=== PATIENT | female | born 1960 | race Caucasian/White ===

== ENCOUNTER 2019-09-06 14:20 | Emergency (ER) | payer BC, SELFPAY ==
--- NOTE | ~2019-09-06 | XR_ITS ---
EXAMINATION: XR cervical spine 4-5V DATE: 09/06/2019 15:27 INDICATION: Neck and right shoulder pain. TECHNIQUE: 5 views of cervical spine were obtained. COMPARISON: None. FINDINGS: There is 3 mm anterolisthesis of C4 on C5 with focal kyphosis. There is 7 degrees dextrocur vature of cervicothoracic spine. Vertebral body heights are normal. There is severely decreased disc height at C5-C6 and moderately decreased disc height at C6-C7. There is multilevel uncovertebral join t osteoarthritis, severe on the right at C5-C6 and severe on the left at C6-C7. There is multilevel m ild facet joint osteoarthritis. There is mild central canal stenosis at C4-C5, C5-C6, and C6-C7. No p revertebral soft tissue swelling. IMPRESSION: 1. Severe cervical spondylosis. Reviewed, dictated and finalized at location A. [facility]P
--- NOTE | ~2019-09-06 | XR_ITS ---
EXAMINATION: XR shoulder RT min 2V DATE: 09/06/2019 15:28 INDICATION: Right shoulder pain and limited range of motion TECHNIQUE: AP internally and externally rotated, AP oblique externally rotated and transscapular Y vi ews of the right shoulder were obtained. COMPARISON: None FINDINGS: Osteopenia. Normal alignment at the right shoulder. No fracture. Glenohumeral joint is normal. Minima l acromioclavicular joint osteoarthritis. Minimal mid thoracic dextrocurvature with mild spondylosis. Soft tissues are unremarkable. Visualized portions of the lungs are clear. IMPRESSION: Osteopenia and minimal acromioclavicular osteoarthritis. No acute osseous abnormality. Reviewed, dictated and finalized at location A. [employer] IMPRESSION: Osteopenia and minimal acromioclavicular osteoarthritis. No acute osseous abnor mality.
[2019-09-06 14:33] VITALS: BP 144/69; PULSE 84; RESP 20; TEMP 37.2; O2SAT 98
--- NOTE | 2019-09-06 15:13 | ED.UPPEXIN ---
HPI - Extremity Injury (Upper) General Chief Complaint: Extremity Injury, Upper Stated Complaint: R SHOULDER PAIN Time Seen by Provider: 09/06/19 15:04 Source: patient and family Mode of arrival: ambulatory Limitations: no limitations History of Present Illness HPI narrative: 59-year-old female presents for evaluation of pain. She reports on Wednesday, 3 days ago she was shopping and noticed mid posterior cervical neck pain. She states she lifted some paint cans and later on she noticed pain was slowly going down her shoulder. That night, entire right upper extremity pain occurred. She reports pain has been constant and has been worse with movement and range of motion. Pain is present, sore and is located near shoulder, axilla, humerus region. She denies any numbness, tingling, swelling, bruising, chest pain, shortness of breath, radiating pain, diaphoresis, palpitations, confusion, lightheadedness, weakness. She is used ibuprofen for her symptoms and is placing her arm in position of comfort. She reports a position of comfort, her pain is a 4, with movement it is a 9. She denies any prior neck or arm injuries, surgeries, pain. Related Data Home Medications Medication Instructions Recorded Confirmed fluoxetine mg 09/06/19 rosuvastatin mg 09/06/19 Allergies Allergy/AdvReac Type Severity Reaction Status Date / Time No Known Allergies Allergy Verified 09/06/19 14:32 Review of Systems Review of Systems: Narrative: CONSTITUTIONAL: Denies fever, chills, weight loss, or sweats. EYES: Denies visual changes, redness, or discharge. ENT: Denies rhinorrhea, congestion, sore throat, or otalgia. CARDIOVASCULAR: Denies chest pain, palpitations, or edema. RESPIRATORY: Denies cough or dyspnea. GASTROINTESTINAL: Denies abdominal pain, nausea, vomiting, or diarrhea. GENITOURINARY: Denies dysuria, hematuria, urinary frequency, malordous urine SKIN: Denies rash or itching. MUSCULOSKELETAL: Reports posterior neck pain, right upper extremity pain. Denies any swelling, bruising NEUROLOGIC: Denies headache, numbness, tingling, or weakness. PSYCHIATRIC: Denies anxiety or depression. All systems reviewed & are unremarkable except as noted in HPI and below PMFSH Comments At the time of my signature, I agree with nursing past medical, surgical, social and family history. There is no relevant family history pertinent to the presenting complaint. Exam Narrative: Exam Narrative: GENERAL: No distress, well appearing, well nourished, alert and calm HEAD: Normocephalic, atraumatic. EYES: Pupils equal, round. Extraocular movements intact. Conjunctivae without redness or drainage. EARS: Tympanic membranes without erythema. TM landmarks intact with good light reflex. Ear canals without discharge. NOSE: Nares patent. Nasal turbinates noninflamed. No nasal discharge MOUTH: Mucous membranes moist. No lesions. No cyanosis. Dentition grossly normal. THROAT: Oropharynx without signs erythema, exudates or lesions. Tonsils not enlarged. NECK: Supple. No lymphadenopathy. RESPIRATORY: Airway patent. Chest clear to auscultation bilaterally. Breath sounds equal bilaterally. No retractions. CARDIOVASCULAR: Regular rate and rhythm. No murmurs, rubs, gallops, or clicks. Capillary refill <2 seconds. GASTROINTESTINAL: Soft, nontender, non-distended. Bowel sounds normoactive. No masses. No organomegaly. No CVA tenderness MUSCULOSKELETAL: Full range of motion of cervical spine with no pain. No tenderness to the cervical spine on palpation. Limited range of motion of right upper extremity due pain located to right axilla and humeral region..Strength grossly normal in all four extremities. No edema. No swelling. No break in skin integrity or skin changes noted SKIN: Color normal. Warm and dry. No rashes. NEURO: Alert. Motor intact in all extremities. Muscle tone normal. Course Vital Signs Vital signs: Vital Signs Temperature 98.9 F 09/06/19 14:33 Pulse Rate 84
== END 2019-09-06 16:20 | disposition home or self-care (01) ==
PROVIDERS: Emergency Provider Nurse Practitioner; PCP Family Medicine
DX: M47.812 Spondylosis without myelopathy or radiculopathy, cervical region (principal); E78.00 Pure hypercholesterolemia, unspecified
CPT/HCPCS: 72050; 73030; 99204; G0463

== ENCOUNTER 2020-05-24 09:29 | Emergency (ER) | payer BC, SELFPAY ==
--- NOTE | 2020-05-24 09:39 | ED.GENADULT ---
HPI - General Adult General Chief complaint: Abdominal Pain Stated complaint: LOWER ABD PAIN Time Seen by Provider: 05/24/20 09:35 History of Present Illness HPI narrative: Patient is requesting to rule out for appendicitis while at the registration desk. Patient was informed that our facility does not rule out appendicitis but was more than happy to see the patient for her current complaint of abdominal pain. Patient states that she will proceed to the emergency room for further evaluation and treatment. Patient did not make it past registration and was not seen in triage or evaluated by the provider. Patient was in no acute distress and left via private car. Related Data Home Medications Medication Instructions Recorded Confirmed fluoxetine mg 09/06/19 rosuvastatin mg 09/06/19 Allergies Allergy/AdvReac Type Severity Reaction Status Date / Time No Known Allergies Allergy Verified 09/08/19 10:36 Discharge Plan Discharge Patient Disposition: Left Without Being Seen Prescriptions: No Action fluoxetine 10 mg capsule RF: 0 rosuvastatin 10 mg tablet RF: 0 diclofenac potassium 50 mg tablet 50 mg PO BID Qty: 30 RF: 0 prednisone 20 mg tablet 30 mg PO BID 5 Days Qty: 15 RF: 0 Follow-up/Referrals: UNKNOWN,DOCTOR [Primary Care Provider] - Time of Disposition: 09:37
== END 2020-05-24 09:41 | disposition left against medical advice (07) ==
PROVIDERS: Emergency Provider Nurse Practitioner Family
DX: Z53.21 Procedure and treatment not carried out due to patient leaving prior to being seen by health care provider (principal)
CPT/HCPCS: 99199

== ENCOUNTER 2020-05-24 09:47 | Emergency (ER) | payer BC, SELFPAY ==
--- NOTE | ~2020-05-24 | CT_ITS ---
EXAMINATION: CT abdomen pelvis w con DATE: 05/24/2020 11:32 INDICATION: Abdominal pain TECHNIQUE: Computed tomography (CT) of the abdomen and pelvis was performed with 100 mL Omnipaque-350 intravenous contrast. Automated exposure control and iterative reconstruction technique were employe d. The dose-length product was 365.78 mGy-cm. COMPARISON: None FINDINGS: Mild discoid atelectasis in the lingula and right middle lobe and dependent passive atelectasis in th e lateral lower lobes. Heart size is normal. Atherosclerotic coronary artery calcific calcification. No pericardial or pleural effusion. Liver, gallbladder, spleen, pancreas, bilateral adrenal glands an d kidneys are normal. Normal appendix. No bowel obstruction. There is diffuse fatty infiltration of t he colonic wall likely related to patient body habitus. More edematous wall thickening and surroundin g inflammatory stranding seen along the distal sigmoid colon. This appears to surround an epiploic ap pendage which demonstrated some haziness in the epiploic fat consistent with epiploic appendage arter ies. Bladder, uterus and bilateral adnexa are unremarkable. Trace amount of free fluid in the pelvis. No abscess or free intraperitoneal gas. No pathologically enlarged abdominal or pelvic lymphadenopat hy. There is calcified atherosclerosis of the aorta and many of the other arteries. Mild scattered d egenerative skeletal changes in the spine and pelvis. IMPRESSION: 1. Mild wall thickening and inflammatory stranding at the sigmoid colon in the region of what appears be an inflamed epiploic appendage consistent with epiploic appendagitis. Differential would include less likely focal colitis which could be infectious, inflammatory or ischemic in etiology. Reviewed, dictated and finalized at location B. IMPRESSION: 1. Mild wall thickening and inflammatory stranding at the sigmoid colon in the region of what appears be an inflamed epiploic appendage consistent with epiplo ic appendagitis. Differential would include less likely focal colitis which cou ld be infectious, inflammatory or ischemic in etiology.
--- NOTE | 2020-05-24 10:09 | ED.ABDPAIN ---
HPI - Abdominal Pain General Chief Complaint: Abdominal Pain Stated Complaint: Right Side ABD Pain Time Seen by Provider: 05/24/20 09:59 Source: patient and family Mode of arrival: ambulatory Limitations: no limitations History of Present Illness HPI narrative: 59 years old white female presents with right lower quadrant pain started 4 days ago, intermittent, dull aching, denies any aggravating factors. Feels better with heating pad. Patient denies any fever, chills, nausea, vomiting, history of abdominal surgery. History of hyperlipidemia. Patient smokes and drinks denies drug use. Related Data Home Medications Medication Instructions Recorded Confirmed fluoxetine mg 05/24/20 rosuvastatin mg 05/24/20 Allergies Allergy/AdvReac Type Severity Reaction Status Date / Time No Known Allergies Allergy Verified 05/24/20 10:53 Review of Systems Review of Systems: Narrative: CONSTITUTIONAL: Denies fever, chills, or sweats. EYES: Denies visual changes, redness, or discharge. ENT: Denies rhinorrhea, congestion, sore throat, or otalgia. CARDIOVASCULAR: Denies chest pain, palpitations, or edema. RESPIRATORY: Denies cough or dyspnea. GASTROINTESTINAL: Denies abdominal pain, nausea, vomiting, or diarrhea. GENITOURINARY: Denies dysuria or hematuria. SKIN: Denies rash or itching. MUSCULOSKELETAL: Denies back pain, joint pain, or myalgia. NEUROLOGIC: Denies headache, numbness, or weakness. PSYCHIATRIC: Denies anxiety or depression. PMFSH Social History Social History (Updated 05/24/20 @ 10:11 by Leigh Ann Del Real MD) Social History: Patient smokes, drinks, denies drug use Second hand tobacco smoke exposure: Yes Gender identity (if verbalized by the patient): Female Exam Narrative: Exam Narrative: General appearance: Well-developed, well-nourished Skin: Normal color Head: Normocephalic, nontraumatic Eyes: Clear conjunctiva ENT: Oropharynx normal, ears normal, nose normal Neck: Supple, nontender Chest and respiratory: Airway patent, no respiratory distress, no accessory muscle use Heart: Regular rate/rhythm Abdomen: Soft, mild tenderness right lower quadrant, no guarding or rebound, distended abdomen, no organomegaly, quiet bowel sounds Vascular: Normal peripheral pulses, normal capillary refill. Musculoskeletal: Normal range of motion, nontender back Neurologic: Alert and oriented ?3, [employer] is normal as tested, no gross motor deficit Course Course Emergency Course: Stable Vital Signs Vital signs: Vital Signs Blood Pressure 161/86 H 05/24/20 10:16 Pulse Oximetry 99 05/24/20 10:16 Temperature 36.2 C L 05/24/20 10:20 Pulse Rate 90 05/24/20 10:20 Respiratory Rate 18 05/24/20 10:20 Blood Pressure 145/65 H 05/24/20 10:46 Pulse Oximetry 98 05/24/20 10:46 MDM - Abdominal Pain MDM Narrative Medical decision making narrative: Patient presents with abdominal pain, physical exam showed a mild tenderness right lower quadrant. Blood work-up showed slight leukocytosis, CT scan of the abdomen and pelvis showed epiploic appendagitis versus colitis Patient will be discharged on Levaquin and Flagyl Differential Diagnosis Differential diagnosis: Likely acute appendicitis, constipation and diverticulitis Lab Data Result diagrams: 05/24/20 10:17 05/24/20 10:43 Labs: Lab Results 05/24/20 05/24/20 05/24/20 Range/Units 10:17 10:17 10:43 WBC 12.3 H (4.5-10.0) K/mm3 RBC 4.29 (4.2-5.4) M/mm3 Hgb 14.0 (12.0-15.0) g/dL Hct 40.9 (37.0-47.0) % MCV 95.3 (80-100) fl MCH 32.6 (26-34) pg MCHC 34.2 (32-36) g/dl RDW 14.6 H (11.5-14.5) % Plt Count 305 (150-375)
[2020-05-24 10:16] VITALS: BP 161/86; O2SAT 99
[2020-05-24 10:20] VITALS: BP 145/80; PULSE 90; RESP 18; TEMP 36.2; O2SAT 100
[2020-05-24 10:32] LABS: Basophils Percent Auto 0.2 % (0.2-1.2); Eosinophils Absolute Auto 0.2 K/mm3 (0-0.3); Eosinophils Percent Auto 1.3 % (0-4.4); Hematocrit 40.9 % (37.0-47.0); Immature Granulocyte Absolute 0.05 K/mm3 (0.00-0.031); Immature Granulocyte Percent A 0.4 % (0-0.5); Lymphocytes Absolute Auto 1.91 K/mm3 (0.9-3.2); Lymphocytes Percent Auto 15.6 % (18.3-44.2); Mean Corpuscular HGB Conc 34.2 g/dl (32-36); Mean Corpuscular Hemoglobin 32.6 pg (26-34); Mean Corpuscular Volume 95.3 fl (80-100); Mean Platelet Volume 10.3 fl (7.4-10.4); Monocytes Absolute Auto 0.8 K/mm3 (0.1-0.6); Monocytes Percent Auto 6.4 % (2.6-8.5); Neutrophils Absolute Auto 9.3 K/mm3 (1.3-6.7); Neutrophils Percent Auto 76.1 % (45.5-73.1); Platelet Count Result 305 k/mm3 (150-375); Red Blood Count 4.29 M/mm3 (4.2-5.4); Red Cell Distribution Width 14.6 % (11.5-14.5); White Blood Count 12.3 K/mm3 (4.5-10.0)
[2020-05-24 10:36] LABS: Add Urine Microscopic? YES; Appearance Urine Clear (Clear); Bacteria Urine Trace /hpf; Bilirubin Urine Negative (Negative); Blood Urine 1+ (Negative); Color Urine Yellow (Yellow); Glucose Urine UA Negative (Negative); Ketones Urine Negative (Negative); Leukocyte Esterase Ur Negative LEU/UL (Negative); Nitrate Urine Negative (Negative); Protein Urine Negative (Negative); RBC Urine 0-2 /hpf (0-2); Specific Grav Ur 1.008 (1.001-1.035); Squamous Epithelial Cell Urine Few /hpf (Few); Urobilinogen Urine Negative mg/dL (<2.0); WBC Urine 0-3 /hpf
[2020-05-24 10:46] VITALS: BP 145/65; O2SAT 98
--- NOTE | 2020-05-24 10:51 | PC.NURSE ---
Report to KYLEE Cornelius, to continue care.
[2020-05-24] MEDS: ONDANSETRON INJ 4 MG/2 ML VIAL IV PUSH (10:57)
[2020-05-24] MEDS: SODIUM CHLORIDE 0.9% IV 1,000 ML 999 ML IV CONT (10:58)
[2020-05-24] MEDS: HYDROmorphone HCL INJ (*CRX) 1 MG/ML SYR 0.5 MG IV PUSH (10:58)
[2020-05-24 11:02] LABS: Alanine Aminotransferase 21 U/L (4-35); Albumin Level 4.4 g/dL (3.5-5.1); Alkaline Phosphatase 78 U/L (38-126); Anion Gap 4 mmol/L (8-16); Aspartate Amino Transferase 26 U/L (14-36); Bilirubin,Total 0.6 mg/dL (0.2-1.3); Blood Urea Nitrogen 9 mg/dL (7-17); Calcium 9.6 mg/dL (8.4-10.2); Carbon Dioxide 32 mmol/L (22-30); Chloride 99 mmol/L (98-107); Estimated CRCL calculation 69 ml/min; Estimated Glomerular Filt Rate > 60; Glucose 110 mg/dL (65-105); Lipase 69 U/L (23-300); Potassium 4.5 mmol/L (3.4-5.0); Sodium 135 mmol/L (137-145)
[2020-05-24 12:58] VITALS: BP 138/72; PULSE 78; RESP 18; O2SAT 100
== END 2020-05-24 13:00 | disposition home or self-care (01) ==
PROVIDERS: Emergency Provider Emergency Medicine; PCP Family Medicine
DX: K63.89 Other specified diseases of intestine (principal); K52.9 Noninfective gastroenteritis and colitis, unspecified
CPT/HCPCS: 36415; 74177; 80053; 81001; 83690; 85025; 96361; 96374; 96375; 99284; J1170; J2405; J7030; Q9967

== ENCOUNTER 2022-05-28 13:54 | Outpatient (CLI) | payer BC, SELFPAY ==
--- NOTE | ~2022-05-28 | DEXA_ITS ---
Bone Density Report Name: KIKI RENEE Age: 61 Sex: Female Ethnicity: White Date of : 1960 Indication: postmenopausal; screening for osteoporosis; cancer; Referring Provider: SHIRIN, [place] Mur[place] Study: Bone densitometry was performed. Exam Date: May 28, 2022 Accession number: [id number] Bone Density: Region BMD T-score Z-score Classification AP Spine(L1-L4) 0.775 -2.5 -0.9 Osteoporosis Femoral Neck (Left) 0.615 -2.1 -0.7 Osteopenia Total Hip (Left) 0.742 -1.6 -0.5 Osteopenia Femoral Neck (Right) 0.600 -2.2 -0.8 Osteopenia Total Hip (Right) 0.747 -1.6 -0.5 Osteopenia Total Hip Mean 0.744 -1.6 -0.5 Osteopenia World Health Organization criteria for BMD impression classify patients as: Normal (T-score at or above -1.0), Osteopenia (T-score between -1.0 and -2.5), or Osteoporosis (T-score at or below -2.5). 10-year Fracture Risk: FRAX not reported because: Some T-score for Spine Total or Hip Total or Femoral Neck at or below -2.5 Clinical Information Provided by Patient: Smokes Has used the following medications: Vitamin D Has the following medical conditions: Cancer Patient maximum height was 65 Menopause Age: 44 Does not regularly consume dairy products Drinks caffeinated beverages Onset of menses at age 12 Number of children 0 Impression: The patient has osteoporosis, based on the Total Spine T-score. The patient has risk factors, including: smoking. Discussion: INCREASED RISK OF FRACTURE. BONE DENSITY IS UNDESIRABLY LOW AT ONE OR MORE SKELETAL SITES, CONSISTENT WITH POSTMENOPAUSAL OSTEOPOROSIS. This patient's lowest T-score meets the World Health Organization's (WHO) criteria for osteoporosis at one or more sites (T-score -2.5 or below). In untreated patients, the risk of osteoporotic fracture increases approximately two-fold for each 1.0 SD decrease in T-score. Low bone density is not the only risk factor for fracture; also consider factors such as patient's age, frailty or poor health, risk of falling, risk of injury, previous osteoporotic fracture, family history of osteoporosis, cigarette smoking, low body weight, etc. Not everyone with low bone mineral density has osteoporosis; osteomalacia and other metabolic bone disorders should also be considered. Patients who have osteoporosis should be evaluated for specific diseases and conditions (secondary causes) that may cause or contribute to bone loss. The [place] [employer]ocrinologists (AACE) and National Osteoporosis Foundation (NOF) recommend pharmacologic intervention for all postmenopausal women whose T-score is in this range. The patient should follow a healthful lifestyle (good nutrition with adequate calcium and vitamin D, and appropriate weight-bearing exercise). Follow-Up: Consider a repeat BMD a
== END 2022-05-28 13:55 | disposition home or self-care (01) ==
PROVIDERS: PCP Family Medicine; Visit Provider Internal Medicine Medical Oncology
DX: C50.112 Malignant neoplasm of central portion of left female breast (principal); Z17.0 Estrogen receptor positive status [ER+]; Z13.820 Encounter for screening for osteoporosis; Z78.0 Asymptomatic menopausal state; M85.89 Other specified disorders of bone density and structure, multiple sites
CPT/HCPCS: 77080

== ENCOUNTER 2024-12-14 13:45 | Outpatient (RCR) | payer MEDICARE, BC, SELFPAY ==
[2024-09-15 11:36] VITALS: BP 108/62; PULSE 57; RESP 16; O2SAT 96
== END 2025-01-02 16:02 | disposition home or self-care (01) ==
LOC: ANHCPREHAB 13:45
PROVIDERS: PCP Family Medicine; Visit Provider Internal Medicine Interventional Cardiology
DX: Z98.61 Coronary angioplasty status (principal)
CPT/HCPCS: 93798